=== PATIENT | female | born 1965 | race Caucasian/White ===

== ENCOUNTER → 2016-03-06 | Day surgery (SDC) | payer OTHER ==
[~2016-03-06] VITALS: Ht 162.6 cm; Wt 76.2 kg
[~2016-03-06] MED LIST: COZAAR100 M1 PO; MULTI-DAY VITA1 EACH PO
--- NOTE | 2016-03-06 16:36 | Operative Report ---
Operative/Inv Procedure Report Surgery Date: 03/06/16 Name of Procedure: cystocele repair with mesh, rectocele repair with mesh, urethral sling, cystoscopy Pre-Operative Diagnosis: cystocele grade 3, rectocele grade 3, stress incontinence Post-Operative Diagnosis: enterocele grade 2, cystocele grade 3, rectocele grade 3, stress incontinence Estimated Blood Loss: 200cc Surgeon/Rn Medicare: MI LAWSON MD Anesthesia: laryngeal mask airway Implants: vaginal mesh x3 Complications: none Condition: stable Operative Indication: cystocele, enterocele, rectocele, stress incontinence Operative/Procedure Note Note: This an operative dictation on patient [facility]. Patient was identified in the holding area and consented for cystocele repair with mesh rectocele repair with mesh, urethral sling and cystoscopy. She was given the risks benefits and alternatives of the surgery. All questions were answered. Patient was taken to the operating room placed on the operating table in the supine position. Once the timeout was performed general anesthesia was started and the patient was placed with an LMA and IV antibiotics were infused. Patient was placed in the dorsal lithotomy position. She was prepped and draped in the standard sterile fashion after being shaved. Vickers catheter was placed at the beginning of the surgery and the bladder was drained. This was clamped and placed on the patient's abdomen. [place] retractor was placed for vaginal vault visualization. 1% lidocaine with epinephrine was infiltrated into the anterior vaginal wall from the bladder neck to the cervix. The vaginal flaps are created taking care not to injure the bladder. The peritoneum was inadvertantly entered and this was closed with a 2-0 vicryl running suture. The Coloplast Restoril mesh was then opened and used to reduce the cystocele and enterocele. This was done first using the thin Capio devoce to place Ethibond sutures in the sacrospinous ligament on the patient's left and right side retropubically. 2 sutures were also placed at the level of the bladder neck and the arcus tendineus fascia. These were then placed through the Restoril mesh as well as distal and proximal 2-0 Vicryl sutures. The sacrospinous ligaments with sutures were then tied down and seen to be in position followed by the bladder neck sutures. The mesh was seen to reduce the cystocele nicely. This was in a tension-free manner. Methylene blue was given at this time to check for the patency of the ureteral orifices. The incision was irrigated and the incision was closed using running locking 2-0 Vicryl suture. The cystoscopy was performed at this point and the bladder was globally inspected. There was no abnormalities in the bladder or urethra. Ureteral orifices were easily identified and efflux was seen emanating from both ureters. 5 Wolof open-ended catheter was also used to cannulate them both in they easily passed. Patient bladder was then emptied and a Vickers catheter was placed back into the bladder. The Altis Sling was then placed after the cystocele repair. The 1% lidocaine with epinephrine was infiltrated into the anterior vaginal wall suburethrally. The incision was made and the vaginal flaps are created taking care not to injure the urethra. The UltraSling kit was then used to place the mesh in a tension-free manner tightening the Prolene suture that's used for this map for this. The trochars that are provided by the kit was used to place into the ureter fascia. Sling was seen to be in a good flat orientation and a tension- free manner. There was grossly irrigated bacitracin irrigation. Incision was closed with a running locking 3-0 Vicryl suture. Cystoscopy was performed and there was no mesh in the bladder or the urethra. Bladder was emptied. Attention was then turned to the rectocele portion of the case. 1% lidocaine was infiltrated into the posterior vaginal wall. The vaginal posterior vaginal wall was then dissected free from the rectocele taking care not to injure to the rectum injure the rectum. Intermittent numb digitation of the rectum was performed to ensure that this did not occur. Once the rectocele was completely dissected free the 2-0 Vicryl interrupted sutures were placed along the lateral portion of the rectocele near the fascia. Acell mesh which had been placed into saline prior to that and soaking for 20 minutes was then used to place within the sutures and the sutures were tied down sequentially from the proximal portion to the distal portion. This reduced the rectocele nicely. The epithelium of the posterior vault was then closed using running locking 2-0 Vicryl suture. The peritoneum was closed using 3-0 Vicryl running locking suture. The sponge and needle count were correct at the end of the case. 2 inch vaginal packing impregnated with bacitracin ointment was placed into the vagina. Findings: no mesh in bladder or urethra. good ureteral efflux bilaterally. Discharge Disposition: PACU
== END ==
LOC: STS 01:53
DX: N39.3 Stress incontinence (female) (male) (principal); N81.10 Cystocele, unspecified; N81.6 Rectocele
CPT/HCPCS: C1771; C1781; J0131; J0744; J2250; J7060